=== PATIENT | female | born 1990 | race American Indian/Alaskan Native ===

== ENCOUNTER 2019-08-30 06:51 | Emergency (ER) | payer SELFPAY ==
[2019-08-30 07:03] VITALS: BP 115/79
[2019-08-30] MEDS ORDERED: CYCLOBENZAPRINE 10 MG TAB PO ONE (08:54)
[2019-08-30] MEDS ORDERED: GABAPENTIN 300 MG CAP PO ONE (08:54)
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
== END 2019-08-30 10:44 | disposition home or self-care (01) ==
LOC: ED 06:51
DX: S39.012A Strain of muscle, fascia and tendon of lower back, initial encounter (principal); S16.1XXA Strain of muscle, fascia and tendon at neck level, initial encounter; S23.9XXA Sprain of unspecified parts of thorax, initial encounter; F12.90 Cannabis use, unspecified, uncomplicated; Z79.899 Other long term (current) drug therapy; V49.59XA Passenger injured in collision with other motor vehicles in traffic accident, initial encounter; Y92.410 Unspecified street and highway as the place of occurrence of the external cause; Y93.89 Activity, other specified; Y99.8 Other external cause status
CPT/HCPCS: 72040